=== PATIENT | female | born 1990 | race Caucasian/White ===

== ENCOUNTER 2024-10-19 15:17 | Outpatient (AMB) | payer BC, SELFPAY ==
[2024-10-19 15:26] VITALS: BP 117/67; PULSE 75; RESP 75; TEMP 36.2; O2SAT 97; BMI 25.1
--- NOTE | 2024-10-19 15:26 | GYNCLNT_ITS ---
Vital Signs 10/19/24 15:26 Height 1.75 m Height Method Stated Weight 77.281 kg Weight Measurement Method Standing Scale BMI 25.1 BP 117/67 Blood Pressure Source Automatic Cuff Blood Pressure Location Left Upper Arm Position Sitting Respiration 75 H Pulse 75 Pulse Source Monitor Temp 97.2 F Temp Source Oral Pulse Oximetry (%) 97 Oxygen Delivery Method Room Air Allergies/Home Meds Allergies & Medications Allergies No Known Allergies Allergy (Verified 10/19/24 15:27) Medication Reconciliation No Known Home Medications 10/19/24 [History Confirmed 10/19/24] Intake Visit Data Collection New Patient or Established: New Patient not seen in past 3 years at [facility] (considered New) Reason for Visit:: Establish care with new PHARMACEUTICAL SPECIALTY REPRESENTATIVE, planning to start IVF cycle in November, request for BCL6 test to evaluate for endometriosis Seen by Clinical Staff ONLY (RN/MA): 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 Do You Feel Safe at Home: Yes Authorities Contacted: N/A PCP or OBGYN visit in last 3 months: No Hx Now: No Are you currently on any form of Control: No Last menstrual period: 10/11/24 Pain Present Currently: No Pain Scale Used: Bowles-Curry/Numerical Pain scale:: 0 Smoking Status Smoking Status: Never smoker 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 1. Little interest or pleasure in doing things: not at all 2. Feeling down, depressed, or hopeless: not at all Total score: 0 PHQ-9 3. Trouble falling or staying asleep, or sleeping too much: Not at all 4. Feeling tired or having little energy: Not at all 5. Poor appetite or overeating: Not at all 6. Feeling bad about yourself - or that you are a failure or have let yourself or your family down: Not at all 7. Trouble concentrating on things, such as reading the newspaper or watching television: Not at all 8. Moving or speaking so slowly that other people could have noticed? - Or the opposite - being so fidgety or restless that you have been moving around a lot more than usual: not at all 9. Thoughts that you would be better off or of hurting yourself in some way: Not at all Total score: 0 If you checked off any problems, how difficult have these problems made it for you to do your work, take care of things at home, or get along with other people?: not difficult at all Source: Developed by Drs. Elias Tong, Yvette Parmar, Wisam Regan and colleagues, with an educational jhonatan from [employer]. Depression screen completed yes Social History Living Situation History Marital Status: Lives With: Family Housing: House Tobacco History Smoking Status: Never smoker Second Hand Smoke Exposure: No Alcohol History Alcohol Intake: Never Domestic Abuse History Do You Feel Safe at Home: Yes Past Medical History Past Medical History Have you ever been diagnosed with any of the following: History of Present Illness HPI Narrative Priyanka Chandler, a patient with a history of two successful IVF pregnancies, pr esents to establish care with a new PHARMACEUTICAL SPECIALTY REPRESENTATIVE practice. She is planning to start another IVF cycle with a frozen embryo transfer in mid-November of this year. The patient reports a family history of endometriosis on both maternal and paternal sides. She experiences painful periods, which have worsened since her pregnancies. The first day of her menstrual cycle is particularly severe, requiring ibuprofen for pain management. Her periods have also become heavier since having children. Ms. Chandler had difficult experiences with her previous vaginal deliveries, including two episiotomies. The second episiotomy, which was mediolateral, caused significant healing complications and pain. She also mentions having a herniated disc in her lumbar spine, which contributed to pelvic floor issues and spasming after her second delivery. These complications resulted in prolonged recovery and missed work. The patient expresses interest in exploring the possibility of endometriosis in her own case, mentioning a specific test (BCL6) she would like to consider in the future. She is also inquiring about the possibility of a scheduled for her next delivery, given her previous difficult experiences with vaginal births and ongoing pelvic floor concerns. Obstetric History - GTPAL: G2 T2 L2 - Current status: Not currently , planning for IVF transfer in midNovember 2024 - history: - Delivered a female via induced vaginal delivery with episiotomy at 39 weeks. weight 7 pounds 6 ounces. Complications: difficult healing due to episiotomy and pelvic floor issues. - Delivered a female via induced vaginal delivery with episiotomy at 39 weeks. weight 6 pounds 7 ounces. Complication: cord wrapped around neck. Medical History - Herniated disc in lumbar spine - Painful menstrual periods since age 13 Surgical History - Episiotomy during first vaginal delivery - Episiotomy (mediolateral) during second vaginal delivery, with difficult heali ng Medications and Supplements - Lupron (leuprolide for depot) - Used to strip lining down for IVF cycle - Ibuprofen - Used for painful periods, especially on the first day Family History - Mother: Diagnosed with endometriosis through surgery - Paternal grandmother: Diagnosed with endometriosis through surgery Social History - Occupation: Works as a teacher - Children: Has two daughters (ages 2.5 and almost 6 years old) - Exercise: Engages in stretching exercises as recommended by doctor Review of Systems General: Positive for painful periods. Musculoskeletal: Positive for lumbar spine herniated disc, difficulty sitting for long periods. Genitourinary: Positive for heavier periods since having children. Other: Positive for pelvic floor dysfunction, spasming, and pain after episioto my. Associated symptoms: Reports pelvic pain Review of Systems Genitourinary Genitourinary: Reports pelvic pain Exam General Limitations: no limitations General Appearance: alert, in no apparent distress, comfortable, cooperative, healthy appearing, well developed and well groomed Head Head exam: atraumatic, normocephalic and normal inspection Chest Chest inspection: Present normal inspection and symmetric chest wall rise Abdominal Abdominal exam: Present soft and normal bowel sounds Psych Psychiatric exam: Present normal affect and normal mood Skin Skin exam: Present warm, dry, intact and normal color Assessment & Plan Diagnosis / Problem List (1) Infertility: (2) Female infertility, unspecified: Status: Acute (3) Lumbar herniated disc: Status: Acute (4) Endometriosis: Status: Acute (5) Pelvic floor dysfunction in female: Status: Acute Plan Priyanka Chandler, female patient with history of IVF pregnancies, presenting to establish care with new PHARMACEUTICAL SPECIALTY REPRESENTATIVE practice in preparation for upcoming IVF cycle and to discuss concerns about endometriosis and pelvic floor dysfunction. Infertility Assessment: Patient has a history of successful IVF pregnancies resulting in two daughters (ages 2.5 and 6 years). Currently planning another IVF cycle with frozen embryo transfer scheduled for mid-November 2024. Previous attempts with male embryos were unsuccessful. Patient receives IVF treatment through Dr. Edmond in [place]. Plan: - Coordinate care with fertility clinic for upcoming IVF cycle - Planned frozen embryo transfer in mid-November 2024 - Patient to start Lupron (leuprolide depot) to prepare uterine lining - Establish as OB patient for potential management Suspected Endometriosis Assessment: Patient reports family history of endometriosis (mother and paternal grandmother diagnosed surgically) and experiences painful periods since menarche at age 13. Symptoms include severe pain on the first day of menses requiring ibuprofen for function, with improvement by the second day. Notably, periods have worsened in severity and flow since pregnancies, which is atypical for endometriosis. No reported premenstrual dysphoric symptoms. Patient expresses interest in BCL6 testing for endometriosis. Plan: - Consider diagnostic laparoscopy for endometriosis evaluation after completion of family planning and period (at least 6 months post-delivery) - Research BCL6 testing prerequisites and process - Defer endometrial biopsy due to upcoming Lupron treatment and IVF cycle Pelvic Floor Dysfunction Assessment: Patient reports difficult healing and pain following two episiotomies during previous vaginal deliveries (midline and mediolateral). Concurrent lumbar herniated disc contributed to pelvic floor muscle spasms and healing complications after second delivery. Patient underwent pelvic floor physical therapy but continues to have difficulty sitting for extended periods. Plan: - Recommend scheduled section for future delivery to prevent further pelvic floor trauma - Plan referral to [facility] ([facility] s pecialist for comprehensive evaluation and potential interventions (e.g., myofascial release, nerve blocks, Botox injections) - Educate patient on typical section recovery process and timeline Lumbar Herniated Disc Assessment: Patient reports history of lumbar herniated disc, which has been managed conservatively with physical therapy. Patient declines surgical intervention due to family planning priorities and personal preference. Current symptoms include difficulty sitting for prolonged periods. Plan: - Continue conservative management with stretching exercises as recommended by previous providers - Advise patient to maintain caution with movements and follow previous physical therapy recommendations - Reassess symptoms and management options after completion of and period Office Procedures OB Clinic LOC & Office Proc's Nursing/Assessment Patient Status: Initial/New Patient OB Clinic Nursing Assessment: BP Monitoring, Medication Reconciliation, Update PMH in EMR and Vital Signs OB Clinic Coordination of Care: Consent,records obtained, informed consent, Education Simp Pt/Fam, Lab and Imaging orders and Staff clarify orders New Patient Charge New Patient Point Assignment: 1089 New Patient Point Charge: PROGRESSIVE CARE MANAGER Level 3 ([id number])
== END 2024-10-19 15:45 | disposition home or self-care (01) ==
LOC: HODSOBC 15:17
PROVIDERS: Supervising Provider Obstetrics & Gynecology; Visit Provider Obstetrics & Gynecology
DX: N80.9 Endometriosis, unspecified (principal); N97.9 Female infertility, unspecified; M51.26 Other intervertebral disc displacement, lumbar region; N94.89 Other specified conditions associated with female genital organs and menstrual cycle; Z84.2 Family history of other diseases of the genitourinary system
CPT/HCPCS: 99203; G0463

== ENCOUNTER → 2025-02-11 | Outpatient (CLI) | payer BC, SELFPAY ==
[2025-02-11 08:43] LABS: Beta HCG,Quantitative 406 mIU/mL (<5.0)
== END | disposition home or self-care (01) ==
LOC: COPL 06:38
PROVIDERS: PCP Student in an Organized Health Care Education/Training Program; Referring Provider Obstetrics & Gynecology; Visit Provider Obstetrics & Gynecology
DX: O09.811 Supervision of pregnancy resulting from assisted reproductive technology, first trimester (principal)
CPT/HCPCS: 36415; 84702

== ENCOUNTER → 2025-02-16 | Outpatient (CLI) | payer BC, SELFPAY ==
[2025-02-16 08:46] LABS: Beta HCG,Quantitative 2951 mIU/mL (<5.0)
== END | disposition home or self-care (01) ==
LOC: COPL 06:35
PROVIDERS: PCP Student in an Organized Health Care Education/Training Program; Referring Provider Obstetrics & Gynecology; Visit Provider Obstetrics & Gynecology
DX: O09.811 Supervision of pregnancy resulting from assisted reproductive technology, first trimester (principal)
CPT/HCPCS: 36415; 84702